=== PATIENT | female | born 2000 | race African-American/Black ===

== ENCOUNTER 2021-05-15 14:40 | Emergency (ER) | payer BC, SELFPAY ==
--- NOTE | ~2021-05-15 | US_ITS ---
EXAM: Pelvic Ultrasound CLINICAL INDICATION: Right lower quadrant pain COMPARISON: None TECHNIQUE: The pelvis was evaluated using transabdominal imaging. Transabdominal imaging was limited due to patient's inability to tolerate transducer pressure to the pelvis. Patient declined transvaginal imaging. FINDINGS: The uterus measures approximately 5.4 x 2.7 x 3.9 cm in longitudinal by AP by transverse dimension. The endometrial stripe is not thickened and measures 0.4 cm. Trace amount of fluid noted within the endocervical canal. Neither ovary clearly visualized. There is no free fluid in the pelvis. US/US pelvic ovarian doppler IMPRESSION: No gross abnormality identified within the uterus on this limited transabdominal pelvic ultrasound. Neither ovary clearly visualized.
[2021-05-15 15:22] VITALS: BP 122/75; PULSE 75; RESP 18; TEMP 36.6; O2SAT 100; BMI 35.6
--- NOTE | 2021-05-15 17:07 | ED.ABDPAIN ---
HPI - Abdominal Pain General Chief Complaint: Abdominal Pain Stated Complaint: abd pain, vomiting, diarrhea Time Seen by Provider: 05/15/21 16:52 Source: patient History of Present Illness HPI narrative: Patient complaining of 2 days worth of severe lower abdominal pain. Last menstrual period 2 months ago. She has a splint not implanted a denies chance of . She has a history of dysmenorrhea but states this is the worst she has ever had. She has never come to emergency department for before. She states she typically has pain in occasionally heavy periods. This pain is severe. It is diffuse but greatest in the right lower abdomen radiating up into her right upper abdomen. Positive nausea vomiting. Positive diarrhea. No dysuria No fevers or chills. Unable to tolerate p.o. does for the past 2 days. She states she is typically regular with her periods and has never gone 2 months in between periods before. Related Data Previous Rx's Medication Instructions Recorded cyclobenzaprine 10 mg tablet 10 mg PO TID #20 tab 05/15/21 ibuprofen 800 mg tablet 800 mg PO TID #30 tab 05/15/21 ondansetron HCl 4 mg tablet 4 mg PO Q6H PRN #14 tab 05/15/21 (Zofran) Allergies Allergy/AdvReac Type Severity Reaction Status Date / Time ceftriaxone [From Rocephin] Allergy Hives Verified 05/15/21 15:22 Review of Systems Comments: No fevers or weakness Comments: No chest pain Comments: No dyspnea Comments: Abdominal pain is described in the HPI Comments: Menorrhagia as described in the HPI Musculoskeletal: Reports no additional musculoskeletal complaints Comments: No rash Comments: No change in recent stressors Physical Exam Vital Signs: Vital Signs: Last Vital Signs Temp 98.5 F 05/15/21 19:03 Pulse 87 05/15/21 19:03 Resp 18 05/15/21 19:03 BP 136/84 05/15/21 19:03 Pulse Ox 100 05/15/21 19:03 Body Mass Index 35.6 Const: Other: Awake alert and appears moderately uncomfortable. Skin is warm and dry. Resp: Other: Clear and equal bilaterally Cardio: Other: Regular rate and rhythm no murmurs rubs or gallops GI: Other: Diffuse tenderness with greatest tenderness in the right lower quadrant. Followed by right upper quadrant. Positive guarding. No referred or rebound pain No distention. Normoactive bowel sounds. Skin: Other: Warm and dry Neuro: Other: Alert and oriented without focal deficits Course Course Course Narrative: Dysmenorrhea and menorrhagia Anemia Ruptured ovarian cyst Ovarian torsion Less likely to represent appendicitis Treated with IV fluids IV Zofran IV Toradol Ultrasound ordered Is 4:00 p.m.. Workup in the emergency department shows normal labs. Ultrasound is unremarkable. Unable to get an IV. Will switch her medications over the IM and sublingual. Will also add Flexeril for possible muscle relaxation. Stable for discharge home MDM - Abdominal Pain Lab Data Result diagrams: 05/15/21 18:55 05/15/21 18:55 Labs: Lab Results 05/15/21 05/15/21 Range/Units 18:55 18:55 WBC 6.2 (4.8-10.8) X10*3/uL RBC 4.39 (4.20-5.50) X10*6/uL Hgb 12.7 (12.0-16.0) g/dl Hct 37.6 (37-47) % MCV 85.6 (80-98) fL MCH 28.9 (27.0-33.0) pg MCHC 33.8 (31.0-35.0) g/dl RDW 12.6 (11.0-16.0) % Plt Count 343 (160-400) X10*3/uL MPV 9.8 (9.4-12.3) fL Immature Gran % (Auto) 0.2 (0.0-0.4) % Neut % (Auto) 46.5 (45-73) % Lymph % (Auto) 43.0 H (20-40) % Crisp % (Auto) 7.7 (2-11) % Eos % (Auto) 2.1 (0-4) % Baso % (Auto) 0.5 (0-2) % Lymph # (Auto) 2.7 (1.2-4.9) X10*3/uL Crisp # (Auto) 0.5 (0.1-1.2) X10*3/uL Eos # (Auto) 0.1 (0.0-0.4) X10*3/uL Baso # (Auto) 0.0 (0.0-0.2) X10*3/uL Abs Immat Gran (auto) 0.01 (0.00-0.03) X10*3/uL Absolute Neuts (auto) 2.9 (2.0-8.3) X10*3/uL Absolute Nucleated RBC 0.000 (0.0-0.012) X10*3/uL Nucleated RBC % (auto) 0.0 (0.0-0.2) /100WBC Sodium 138 (135-145) mmol/L Potassium 3.6 (3.3-5.1) mmol/L Chloride 106 (96-108) mmol/L Carbon Dioxide 21 L (22-29) mmol/L Anion Gap 15 (12-20) BUN 8 L (9-16) mg/dL Creatinine 0.81 (0.5-1.4) mg/dL Estim Creat Clear Calc 114.4 Estimated GFR > 60 Random Glucose 86 (60-115) mg/dL Calcium 9.0 (8.4-10.2) mg/dL Total Bilirubin 0.3 (0.0-1.0) mg/dL AST 11 (5-31) U/L ALT 19 (0-31) U/L Alkaline Phosphatase 57 (39-117) U/L Total Protein 7.3 (6.5-8.0) g/dL Albumin 4.3 (3.5-5.0) g/dL Beta HCG, Quant < 2 mIU/mL Discharge Plan Discharge Clinical Impression: Dysmenorrhea Patient Disposition: Home, Self-Care Instructions: Dysmenorrhea (ED) Prescriptions: New ibuprofen 800 mg tablet 800 mg PO TID Qty: 30 RF: 0 cyclobenzaprine 10 mg tablet 10 mg PO TID Qty: 20 RF: 0 ondansetron HCl [Zofran] 4 mg tablet 4 mg PO Q6H PRN (Reason: nausea and vomiting) Qty: 14 RF: 0 Stand Alone Forms: Work/School Release Interventions: ED Discharge Assessment Last Done: 05/15/21 20:50 Discharge Date/Time: 05/15/21 20:51 [facility] Social History Social History Advance Directives: No Advance Directives Information Provided: No Patient : No
[2021-05-15] MEDS: Ketorolac Tromethamine 15 MG/ML VIAL 30 MG IVPUSH (18:46)
[2021-05-15] MEDS: ondansetron HCL 4 MG/2 ML VIAL IVPUSH (18:47)
[2021-05-15] MEDS: 0.9 % Sodium Chloride 1,000 ML 999 ML IV (18:48)
[2021-05-15 19:03] VITALS: BP 136/84; PULSE 87; RESP 18; TEMP 36.9; O2SAT 100
[2021-05-15 19:16] LABS: MANUAL DIFF FLAG NO
[2021-05-15 19:17] LABS: Basophils Percent Auto 0.5 % (0-2); Eosinophils Absolute Auto 0.1 X10*3/uL (0.0-0.4); Eosinophils Percent Auto 2.1 % (0-4); Hematocrit 37.6 % (37-47); Hemoglobin 12.7 g/dl (12.0-16.0); Imm Gran Abs Auto 0.01 X10*3/uL (0.00-0.03); Imm Gran Pct Auto 0.2 % (0.0-0.4); Lymphocytes Absolute Auto 2.7 X10*3/uL (1.2-4.9); Mean Corpuscular HGB Conc 33.8 g/dl (31.0-35.0); Mean Corpuscular Hemoglobin 28.9 pg (27.0-33.0); Mean Corpuscular Volume 85.6 fL (80-98); Mean Platelet Volume 9.8 fL (9.4-12.3); Monocytes Absolute Auto 0.5 X10*3/uL (0.1-1.2); Monocytes Percent Auto 7.7 % (2-11); Neutrophils Absolute Auto 2.9 X10*3/uL (2.0-8.3); Neutrophils Percent Auto 46.5 % (45-73); Platelet Count 343 X10*3/uL (160-400); Red Blood Count 4.39 X10*6/uL (4.20-5.50); Red Cell Distribution Width 12.6 % (11.0-16.0); White Blood Count 6.2 X10*3/uL (4.8-10.8)
[2021-05-15 19:36] LABS: Alanine Aminotransferase 19 U/L (0-31); Albumin Level 4.3 g/dL (3.5-5.0); Alkaline Phosphatase 57 U/L (39-117); Anion Gap 15 (12-20); Aspartate Amino Transferase 11 U/L (5-31); Bilirubin Total 0.3 mg/dL (0.0-1.0); Blood Urea Nitrogen 8 mg/dL (9-16); Carbon Dioxide 21 mmol/L (22-29); Chloride 106 mmol/L (96-108); Creatinine Clr Calc Pharmacy 114.4; Estimated Glomerular Filt Rate > 60; Glucose Random 86 mg/dL (60-115); Potassium 3.6 mmol/L (3.3-5.1); Sodium 138 mmol/L (135-145); Total Protein 7.3 g/dL (6.5-8.0)
[2021-05-15 19:44] LABS: HCG Quantitative < 2 mIU/mL
[2021-05-15] MEDS: Ketorolac Tromethamine 15 MG/ML VIAL 30 MG IM (20:22)
[2021-05-15] MEDS: Cyclobenzaprine HCl 10 MG TABLET PO (20:23)
[2021-05-15] MEDS: Ondansetron ODT 4 MG TAB.RAPDIS TRANSLINGU (20:23)
== END 2021-05-15 20:51 | disposition home or self-care (01) ==
PROVIDERS: Emergency Provider Emergency Medicine
DX: N94.4 Primary dysmenorrhea (principal); R10.31 Right lower quadrant pain; Z79.899 Other long term (current) drug therapy
CPT/HCPCS: 36415; 80053; 84702; 85025; 93975; 96361; 96372; 96374; 96375; 99284; J1885; J2405